=== PATIENT | female | born 1955 | race Caucasian/White ===

== ENCOUNTER → 2018-04-23 10:35 | Outpatient (CLI) | payer BC, SELFPAY | PROVIDERS: Family Provider Family Medicine; PCP Family Medicine; Visit Provider Physician Assistant | DX: M25.561 Pain in right knee (principal) | CPT/HCPCS: 73564 ==

== ENCOUNTER 2018-06-24 10:30 | Outpatient (RCR) | payer BC, SELFPAY ==
--- NOTE | 2018-06-02 14:01 | HP.PTEVAL_ITS ---
Patient's Visit Information EARNEST SOLIMAN is a 62 year old F referred to Physical Therapy by Que Michelle MD with a diagnosis of R TKA. Date of Evaluation: 06/02/18 Physical Therapist: Sonu Richard PT, - Visit Plan Frequency: 2-3x /Week Duration: 4-6 Weeks Plan: R LE strengthening, core stab ex's, balance and proprio, bike, and HEP - Subjective Subjective: DOS: 12/18/15. Pt reports she had a R TKA performed at that time. Pt reports she was doing great and was not in any pain after finishing her PT. Pt notes this past summer her R knee started hurting again. Pt reports she had xrays which revealed no diefinite findings. Pt reports she is having sig diff with stair negotiation and standing up after sitting down. Pt reports she has remained active with walking, yoga, and playing softball. Pt reports she does have some numbness on the bottom of her R lat foot since having her surgery. No other B LE T or N. Occasional sleep diff secondary to pain. 0/10 pain at rest this date, 7/10 at worst (standing from sitting) - Pain R knee pain Pain Intensity (Out of 10): 0 Pain Intensity Range: 7 - Objective Girth at joint line: B knees are 43.5 cm. Neuro: B LE sensation is WNL to light touch. B achilles reflex= 2/3. ROM: R knee 0-3-110, L knee 0-125 degrees. MMT: R knee is grossly 4+/5 throughout. L knee 5/5. Gait: No sig deviations at this time. Stairs: Pt is able to negotiate stairs but very slowly this date. - Goals Goal 1:: Decrease R knee pain x 50% to aid with sleep Goal Time Frame: 4-6 Weeks Goal 2:: Increase R knee strength x 1 grade to aid with stair negotiation Goal Time Frame: 4-6 Weeks Goal 3:: I with HEP Goal Time Frame: 4-6 Weeks - Rehabilitation Potential Physical Therapy Diagnosis: Pt has R knee pain, weakness, and limited ROM secondary to debilitation from R TKA Rehabilitation Potential: Good - Anticipated Interventions Patient/Client Instruction: Educate patient on: Condition, Plan of Care For the Purpose of:: To improve self management Therapeutic Exercise to Include: Strength training, Endurance training, Balance training, Flexibilty training, Dynamic Lumbar Stabilization For the Purpose of:: To decrease pain, To improve muscle performance and motor function, To increase tolerance to activity/condition/position Cryotherapy (ice pack, ice massage): Yes For the Purpose of:: To decrease pain Thank you for the opportunity to evaluate your patient. For Medicare and Medicare HMO plans, please review the plan of care and approve it. It will need to be FAXED BACK to us at [phone] for Medicare purposes. Please let me know if there are questions or concerns regarding this plan of care. Physician Signature: Date:
--- NOTE | 2018-06-24 10:59 | HP.PTDCSUM ---
HP - PT D/C Summary It has been my pleasure to treat EARNEST SOLIMAN under orders from Que Michelle MD, for the diagnosis of R TKA for a total of 7 visit(s). Discharge Date: Please see the following information for a summary of their discharge status. - Subjective Subjective: Pt reports she feels like PT is not helping her. It is making her more sore and stiff - Pain R knee pain Pain Intensity (Out of 10): 1 - Objective Objective/Function: Pt is not progressing at this time. Pt reports she is more sore and stiff after Rx's. - Goals Goal 1:: Decrease R knee pain x 50% to aid with sleep Goal 2:: Increase R knee strength x 1 grade to aid with stair negotiation Goal 3:: I with HEP - Plan Plan: Discontinue secondary to lack of progress - D/C Information If there are questions or concerns regarding this patient's physical therapy, please feel free to call me at [phone]. Thank you for the referral of this patient. Sincerely, Sonu Richard, PT,
== END 2018-06-24 18:41 | disposition home or self-care (01) ==
LOC: PT 10:30
PROVIDERS: Family Provider Family Medicine; PCP Family Medicine; Visit Provider Specialist
DX: Z96.651 Presence of right artificial knee joint (principal)
CPT/HCPCS: 97110; 97161; 97530

== ENCOUNTER 2020-11-17 14:07 | Outpatient (RCR) | payer BC, SELFPAY ==
[2020-11-17] MEDS: COVID-19 VACC, MRNA(PFIZER)/PF 30 MCG/0.3 ML SYRINGE IM (15:19)
[2020-12-08] MEDS: COVID-19 VACC, MRNA(PFIZER)/PF 30 MCG/0.3 ML SYRINGE IM (15:01)
== END 2020-11-17 23:59 ==
LOC: IMMUN 14:07
PROVIDERS: PCP Student in an Organized Health Care Education/Training Program; Referring Provider Family Medicine; Visit Provider Family Medicine
DX: Z23 Encounter for immunization (principal)
CPT/HCPCS: 0001A; 0002A; 91300

== ENCOUNTER → 2021-03-28 08:48 | Outpatient (CLI) | payer BC, SELFPAY ==
[2021-03-15 11:00] VITALS: BMI 35.3
--- NOTE | 2021-03-28 08:52 | RDU_ITS ---
Reason For Study: HTN Right Renal Artery Left Renal Artery Right renal artery ostium Left renal artery ostium 132.4/40.2 143.3/46.7 RSV/EDV. PSV/EDV. Right renal artery proximal Left renal artery proximal PSV/EDV 178.9/68.9 PSV/EDV. 130.2/44.6 . Right renal artery mid 218.7/60.3 Left renal artery mid 132.4/55.5 PSV/EDV. PSV/EDV . Right renal artery distal Left renal artery distal 92.9/37.4 179.8/50.5 PSV/EDV. PSV/EDV. Right RAR 2.95. Left RAR 1.79. Right Renal Parenchyma Left Renal Parenchyma Upper Pole Medula 28.6/9 PSV/EDV. Left upper pole medulla 25.2/12 Right upper pole medulla EDR 0.31 . PSV/EDV . Right upper pole medulla R.I. Left upper pole medulla EDR 0.48 . 0.69 . Left upper pole medulla R.I. 0.52 . Upper Jelani Cortx 22.5/8.4 PSV/EDV. UP Cortex 18.6/7.6 PSV/EDV. Right upper pole cortex EDR 0.37 . Left upper pole cortex EDR 0.41 . Right upper pole cortex R.I. 0.63 . Left upper pole cortex R.I. 0.59 . Right lower Pole medulla 31.7/11.4 Left lower Pole medulla 24.7/12 PSV/EDV . PSV/EDV . Right lower pole medulla EDR 0.36 . Left lower pole medulla EDR 0.49 . Right lower pole medulla R.I. Left lower pole medulla R.I. 0.51 . 0.64 . Lower Pole Cortx 14.8/7.1 PSV/EDV. Lower Pole Cortex 23.7/9.6 PSV/EDV. Left lower pole cortex EDR 0.48 . Right lower pole cortex EDR 0.40 . Left lower pole cortex R.I. 0.52 . Right lower pole cortex R.I. 0.60 . Left Renal Hilar Right Renal Hilar LT Hilar avg 57.4/22.7 PSV/EDV . Right Hilar avg 76.4/28.1 PSV/EDV. Left hilar acceleration time 40 Right hilar acceleration time 50 m/sec. m/sec. Left Renal Dimensions Right Renal Dimensions Left kidney size 12.41 cm . Right kidney size 11.58 cm . Left cortical dimension 1.63 cm . Right cortical dimension 1.78 cm . Aorta Proximal abdominal aorta 2.65 x 2.68 cm . Proximal abdominal aorta peak systolic velocity is 74.1 cm/sec . Distal abdominal aorta 1.66 x 1.66 cm . Distal abdominal aorta peak systolic velocity is 91.3 cm/sec . VL/Renal Artery Duplex Ultrasound Interpretation Summary Maximal aortic diameter approximately 2.65 x 2.68 cm diameter consistent with m ild ectasia. Velocities are normal. Less than 60% stenosis right renal artery Maintained right renal length 11.58 cm Less than 60% stenosis left renal artery Maintained left renal length 12.41 cm Ordering Physician: Dariusz Burgess Referring Physician: Héctor Villagran Performed By: Prudence Logan RVT and Student
== END ==
PROVIDERS: PCP Student in an Organized Health Care Education/Training Program; Referring Provider Internal Medicine Cardiovascular Disease; Visit Provider Internal Medicine Cardiovascular Disease
DX: I10 Essential (primary) hypertension (principal)
CPT/HCPCS: 93975

== ENCOUNTER 2023-12-29 11:00 | Outpatient (RCR) | payer MEDICARE, OTHER, SELFPAY ==
--- NOTE | 2023-12-16 10:05 | HP.PTEVAL_ITS ---
Patient's Visit Information Visit Information Visit Information: EARNEST SOLIMAN is a 68 year old F referred to Physical Therapy by Dr. Bola Waite MD with a diagnosis of L knee pain. Date of Evaluation: 12/16/23 Physical Therapist: Sonu Richard, PT, ATC Visit Plan Frequency: 2x /Week Duration: 3-6 weeks Plan: L knee stretching and strengthening, balance and proprio, core strengthening, nustep, and HEP Subjective Subjective: Pt reports she started having L knee pain approximately 1 month ago. Pt reports she was exercising at the time and experienced increased pain after squatting. Pt also notes she fell while walking out of her house, which may also have impacted her pain. Pt reports she had a cortisone injection one week later which made no difference. Pt reports she is still in a lot of pain today. Pt notes she has to ambulate with the use of a cane now secondary to her pain. Pt reports occasional sleep difficulty secondary to pain. Pt reports she has 2 steps to enter the house, and stairs to her basement. Pt reports she has to negotiate them one step at a time. Pt denies tingling or numbness in L LE. 0/10 pain at rest, 8/10 pain at worst. Pain is located inferior to patella, along the medial joint line, and in the posterior compartment of the L knee. L knee does not catch/lockup/pop, but does feel unsteady with ambulation Pain L knee pain: Pain Intensity (Out of 10): 0 Pain Intensity Range: 8 Objective Objective: Neuro: B LE sensation is WNL to light touch. B achilles reflex= 2/3 Palpation: Pt is very sore on the medial aspect of L knee. No obvious deformity. Minor swelling in popliteal compartment consistent with a cyst. ROM: L knee 0-125 degrees ; R knee 0-125 degrees MMT: R knee flex= 39, ext= 42 #F; L knee flex= 36, ext= 34 #F Special testing: Pos apley compression test Balance/Special Test Scores Lower Extremity Functional Score: 12 Goals Goal 1:: Decrease L knee pain x 50 % to aid with sleep Goal Time Frame: 4-6 Weeks Goal 2:: Increase L knee strength x 5#F to aid with stair negotiation Goal Time Frame: 4-6 Weeks Goal 3:: I with HEP Goal Time Frame: 4-6 Weeks Rehabilitation Potential Physical Therapy Diagnosis: Pt has L knee pain, weakness, and difficulty with ambulation secondary to L knee pathology Rehabilitation Potential: Good Anticipated Interventions Patient/Client Instruction: Educate patient on: Condition and Plan of Care For the Purpose of:: To improve self management Therapeutic Exercise to Include: Strength training, Endurance training, Balance training, Flexibilty training, Active ROM and Dynamic Lumbar Stabilization For the Purpose of:: To decrease pain, To improve muscle performance and motor function and To increase tolerance to activity/condition/position Cryotherapy (ice pack, ice massage): Yes For the Purpose of:: To decrease pain Text: Thank you for the opportunity to evaluate your patient. For Medicare and Medicare HMO plans, please review the plan of care and approve it. It will need to be FAXED BACK to us at [phone] for Medicare purposes. For Medicare only, by signing this I certify the plan of care. Please let me know if there are questions or concerns regarding this plan of care. Physician Signature: Date:_
--- NOTE | 2024-04-13 15:06 | HP.PT.NRP ---
Patient Information Patient Information: EARNEST SOLIMAN was seen in my office for initial evaluation on 12/16/23. The following Plan of Care was established for this patient: POC Established Initial Frequency: 2x /Week Initial Duration: 3-6 weeks Anticipated Interventions Patient/Client Instruction: Educate patient on: Condition and Plan of Care For the Purpose of:: To improve self management Therapeutic Exercise to Include: Strength training, Endurance training, Balance training, Flexibilty training, Active ROM and Dynamic Lumbar Stabilization For the Purpose of:: To decrease pain, To improve muscle performance and motor function and To increase tolerance to activity/condition/position Cryotherapy (ice pack, ice massage): Yes For the Purpose of:: To decrease pain Last Seen Last Seen: This patient was last seen in our office . Pertinent comments regarding their Physical therapy will appear below: Pt was treated for 4 PT visits for L knee pain through the date of 12/29/23. Pt has not returned through todays date and is discontinued at this time. At this point I will be discontinuing this patient from physical therapy. I would be happy to see this patient again in the future if found appropriate by the physician. Thank you! Sonu Richard, PT, ATC Balance/Gait/Functional tests Balance/Special Test Scores Lower Extremity Functional Score: 12
== END 2023-12-29 19:00 | disposition home or self-care (01) ==
LOC: PT 11:00
PROVIDERS: PCP Student in an Organized Health Care Education/Training Program; Referring Provider Orthopaedic Surgery Sports Medicine; Visit Provider Orthopaedic Surgery Sports Medicine
DX: M17.12 Unilateral primary osteoarthritis, left knee (principal); M25.562 Pain in left knee
CPT/HCPCS: 97110; 97161

== ENCOUNTER → 2024-01-05 | Outpatient (CLI) | payer MEDICARE, OTHER, SELFPAY ==
--- NOTE | 2024-01-05 08:32 | MRI_ITS ---
STUDY: MRI LEFT KNEE REASON FOR EXAM: Female, 68 years old. Pain, failed steroid injection. No known injury. Pain in left knee x 1 month. Pain from joint down the calf. TECHNIQUE: Standardized fat and water weighted pulse sequences were obtained in all 3 orthogonal planes. COMPARISON: Left knee radiographs dated 11/20/2023. FINDINGS: There is a tear of the posterior medial meniscal root (sagittal PD series 5 images 16-17). There is a small curvilinear subchondral trabecular stress fracture of the medial tibial plateau (coronal T2 series 8 images 18-19). There is degenerative arthrosis of the medial femorotibial compartment with joint space narrowing, tiny marginal osteophyte formation, moderate to high-grade chondromalacia, and subchondral marrow edema in the medial tibial plateau. There is a mild grade I MCL sprain with periligamentous edema. Normal distal semimembranosus, gracilis and semitendinosus tendons. Normal lateral meniscus. Normal hyaline cartilage of the lateral femorotibial compartment. There is subchondral marrow edema in the lateral femoral condyle and lateral tibial plateau. Normal proximal tibiofibular articulation. Normal lateral collateral (fibular) ligament. Normal popliteus tendon. Normal biceps femoris tendon. Normal anterior cruciate ligament (ACL). Normal posterior cruciate ligament (PCL). There is low to moderate grade patellofemoral chondromalacia. Congruent patellofemoral articulation. Normal medial and lateral patellar retinaculum. Normal quadriceps tendon. Normal patellar tendon. Normal Hoffa''s fat pad. There is a small joint effusion. There is a small partially leaking popliteal cyst. There is minimal subcutaneous soft tissue edema along the anterior aspect of the knee. MRI/Lower Ext Joint Only (Routine) IMPRESSION: Tear of the posterior medial meniscal root. Small curvilinear subchondral trabecular stress fracture of the medial tibial plateau. Mild grade I MCL sprain. 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 Subchondral marrow edema in the lateral femoral condyle and lateral tibial plateau. 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 Small joint effusion. Small partially leaking popliteal cyst. Electronically Signed: Luis Baca MD at 15:55 EDT ,
== END | disposition home or self-care (01) ==
LOC: MRI 08:04
PROVIDERS: PCP Student in an Organized Health Care Education/Training Program; Referring Provider Orthopaedic Surgery Sports Medicine; Visit Provider Orthopaedic Surgery Sports Medicine
DX: M25.562 Pain in left knee (principal)
CPT/HCPCS: 73721